=== PATIENT | female | born 1940 | race Caucasian/White ===

== ENCOUNTER → 2016-12-23 | Day surgery (SDC) | payer OTHER ==
[~2016-12-23] VITALS: Ht 162.6 cm; Wt 71.4 kg
[~2016-12-23] MED LIST: ACETAMINOPHEN 500 MG CPLT PO PRN; ATROPINE SULFATE 1% OPHT SOLN 2 ML BTL ONE; BALANCED SALT SOLN OPHT IRRIG 15 ML BTL ONE; BUPIVACAINE HCL PF 0.75% 10 ML VIAL ONE; CHLORHEXIDINE GLUCONATE 2 % 1 PACK (2 CLOTHS) TOPICAL PRN; DEXAMETHASONE SOD PHOS 4 MG/ML VIAL ONE; DO NOT ADM ANY ANTICOAGULANT DRUGS PRN; ENAL20TA PO; EPINEPHrine HCL (1:1000) 1 MG/ML VIAL ONE; INSULIN HUMAN REGULAR 1,000 UNITS/10 ML VIAL SQ PRN; LACTATED RINGER'S 1000 ML IV PRN; METF1000 PO; METOPROLOL TARTRATE 25 MG TAB PO PRN; MIDAZOLAM HCL 2 MG/2 ML VIAL ONE; ONDANSETRON HCL 4 MG/2 ML VIAL IM PRN; ONDANSETRON HCL 4 MG/2 ML VIAL IV PUSH ONE; POVIDONE IODINE 5% (ANTISEPSIS KIT) 4 APPLICATIONS EACH NARE PRN; PRAV40TA2 PO; PROPOFOL 200 MG/20 ML AMP IV ONE; SODIUM CHLORID 0.9% 500 ML IV PRN; STERILE WATER FOR INJ 20 ML VIAL ONE; TOBRAMYCIN SULF 0.3% OPHT SOLN 5 ML BTL ONE; TOBRAMYCIN/DEXAMETHASONE OPTH OINT 3.5 GM TUBE ONE; ceFAZolin INJ 1,000 MG VIAL ONE; fentaNYL CITRATE 250 MCG/5 ML AMP ONE; oxyCODONE/ACETAMINOPHEN 5 MG/325 MG TAB PO PRN
[2016-12-23 06:48] VITALS: BP 154/62; PULSE 93; RESP 16; TEMP 97.8; O2SAT 96
[2016-12-23 07:04] LABS: AUTOMATED NEUTROPHIL # 4.8 TH/MM3 (1.8-7.7); BASOPHIL % 0.6 % (0.0-2.0); EOSINOPHIL # 0.3 TH/MM3 (0-0.4); EOSINOPHIL % 3.9 % (0.0-4.0); HEMO FLAGS DIFF FINAL; LYMPH % 21.1 % (9.0-44.0); LYMPHOCYTE # 1.6 TH/MM3 (1.0-4.8); MEAN CELL VOLUME 81.8 FL (80.0-100.0); MEAN CORPUSCULAR HEMOGLOBIN 27.3 PG (27.0-34.0); MEAN CORPUSCULAR HGB CONC 33.3 % (32.0-36.0); MONO % 10.1 % (0.0-8.0); NEUT % 64.3 % (16.0-70.0); PLATELET COUNT 177 TH/MM3 (150-450); RED BLOOD COUNT 4.65 MIL/MM3 (4.00-5.30); RED CELL DISTRIBUTION WIDTH 14.9 % (11.6-17.2); WHITE BLOOD COUNT 7.5 TH/MM3 (4.0-11.0)
[2016-12-23] MEDS: PHENYLEPHRINE HCL 2.5% OPTH SOLN 2 ML BTL LEFT EYE SCH ×2 (07:40→07:55)
[2016-12-23] MEDS: CYCLOPENTOLATE HCL 1% OPHT SOLN 2 ML BTL LEFT EYE SCH ×2 (07:40→07:55)
[2016-12-23] MEDS: TROPICAMIDE 1% OPHT SOLN 15 ML BTL LEFT EYE SCH ×2 (07:40→07:55)
[2016-12-23] MEDS: ATROPINE SULFATE 1% OPHT SOLN 5 ML BTL LEFT EYE SCH ×2 (07:40→07:55)
[2016-12-23 13:20] VITALS: BP 143/79; PULSE 75; RESP 20; TEMP 97; O2SAT 95
--- NOTE | 2016-12-24 10:45 | EKG ---
Date Performed: 12/23/2016 Time Performed: 06:55:09 PTAGE: 76 years EKG: Sinus rhythm BORDERLINE LEFT AXIS DEVIATION BORDERLINE ECG NO PREVIOUS TRACING DOCTOR: Charlie Sahu Interpretating Date/Time 12/24/2016 10:44:11
--- NOTE | 2016-12-30 14:10 | MP ---
cc: YOKO CHRISTENSEN M.D. DATE OF SURGERY: 12/23/2016 PREOPERATIVE DIAGNOSIS: Rhegmatogenous retinal detachment left eye. POSTOPERATIVE DIAGNOSIS: Rhegmatogenous retinal detachment left eye. OPERATIVE PROCEDURE PERFORMED: Trans pars plana vitrectomy, scleral buckle procedure, gas fluid exchange, laser retinopexy, left eye. SURGEON: Yoko Christensen MD. ANESTHESIA: General laryngeal mask anesthesia. INDICATIONS FOR THE PROCEDURE: Ms. 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 She was unaware of this until the examination. She was sent in and it appeared that the retina was detached from approximately three to nine o'clock. The macula was still attached and there appeared to be a retinal break at about 5 o'clock. The situation was discussed with the patient and it was recommended that she undergo surgery to repair this. She was consented for both a vitrectomy and scleral buckle procedure. Informed consent was obtained. No guarantee was made as to visual recovery. DESCRIPTION OF THE PROCEDURE IN DETAIL: She was brought to [facility] operating room #1 and placed on the operating table. Appropriate anesthesia monitoring devices were applied and she was placed under general anesthesia using a laryngeal mask. The left eye was identified as the operative site and then prepped and draped in the usual sterile fashion. A lid speculum was placed. The microscope was brought around and adjusted. At this time an appropriate time-out was called with the surgical team agreeing to the proposed surgical site and procedure. Initially she had a conjunctival peritomy done at the limbus 360 degrees with relaxing incisions at four and ten o'clock. All four quadrants were opened with blunt dissection using the Celine scissors. The muscles were hooked on muscle hooks and then transferred onto 4-0 black silk ties. Using the fork retractor to inspect the quadrants, all quadrants had good scleral thickness. Next using the indirect ophthalmoscope and scleral marker, the site of the retinal break was marked on the sclera. Diathermy was used to make that hali permanent. Next, 5-0 polyester sutures were placed mattress fashion in each quadrant. A 41 band was threaded underneath the muscles and through the mattress sutures and secured with a 70 sleeve above the lateral rectus muscle. Next using a straight [place] blade, a scleral cutdown was done at the posterior edge of the proposed buckle at about 04:30 to 5 o'clock. It was done radially and as the sclera was incised, diathermy was used to part the scleral wound and allow visualization of the choroid. The choroid was then punctured with a sharp diathermy needle and external drainage of subretinal fluid ensued. Near complete drainage was accomplished. Once that had been done, the buckle was then tightened and secured with the mattress sutures. The 23-gauge vitrectomy system was used with the trocars placed 4 mm posterior to the limbus with the first one being placed at approximately 3:30 o'clock and verified to be in the posterior chamber and then an infusion cannula was affixed to it and turned on. Two additional sclerostomies were done at 10 and 2 o'clock. A complete vitrectomy was carried out. Perfluoron liquid was used to flatten the remaining subretinal fluid after which laser retinopexy was placed on the buckle and around the retinal break at a power of 300 milliwatts by endolaser delivery and a total number of 874 laser spots with a duration of 0.1-second. The Perfluoron was exchanged for air and then the air exchanged for a 25% mixture of SF6 gas. The sclerostomies were closed with 7-0 Vicryl leaving the eye with good pressure and airtight. The orbit was irrigated with a mixture of 0.75% Marcaine without epinephrine and tobramycin solution. The conjunctiva was brought back up into place and closed with interrupted 7-0 chromic. Atropine drops were placed on the cornea followed by subconjunctival injections of Ancef 125 mg in 0.5 cc and Decadron 2 mg in 0.5 cc. The lid speculum was removed and the patient was undraped. TobraDex ointment was placed on the cornea and then the left eye was patched and shielded. The patient had the laryngeal mass removed in the room and was returned to recovery in good condition. She was lying on her right side and when awake and alert, will be asked to assume face down positioning. MD MAC Belle/KIM /12:19 PM /2:07 PM
== END | disposition home or self-care (01) ==
LOC: HSDC 06:14
PROVIDERS: ATTEND Ophthalmology
DX: H33.022 Retinal detachment with multiple breaks, left eye (principal); E11.9 Type 2 diabetes mellitus without complications; I10 Essential (primary) hypertension; Z79.84 Long term (current) use of oral hypoglycemic drugs; Z01.810 Encounter for preprocedural cardiovascular examination; Z01.818 Encounter for other preprocedural examination
CPT/HCPCS: 00145; 67108; 85025; 93005; J0171; J0690; J1100; J2250; J2405; J3010; J7120

== ENCOUNTER 2017-11-10 22:45 | Observation (INO) | payer OTHER ==
[~2017-11-10] VITALS: Ht 162.6 cm; Wt 70.0 kg
[2017-11-10] MEDS: NITROGLYCERIN 0.4 MG SL 25 TABS/BTL SL SCH ×3 (00:15→23:38)
[~2017-11-10 22:45] MED LIST changes: -ACETAMINOPHEN 500 MG CPLT PO PRN; -ATROPINE SULFATE 1% OPHT SOLN 2 ML BTL ONE; -BALANCED SALT SOLN OPHT IRRIG 15 ML BTL ONE; -BUPIVACAINE HCL PF 0.75% 10 ML VIAL ONE; -CHLORHEXIDINE GLUCONATE 2 % 1 PACK (2 CLOTHS) TOPICAL PRN; -DEXAMETHASONE SOD PHOS 4 MG/ML VIAL ONE; -DO NOT ADM ANY ANTICOAGULANT DRUGS PRN; -EPINEPHrine HCL (1:1000) 1 MG/ML VIAL ONE; -INSULIN HUMAN REGULAR 1,000 UNITS/10 ML VIAL SQ PRN; -LACTATED RINGER'S 1000 ML IV PRN; -METOPROLOL TARTRATE 25 MG TAB PO PRN; -MIDAZOLAM HCL 2 MG/2 ML VIAL ONE; -ONDANSETRON HCL 4 MG/2 ML VIAL IM PRN; -ONDANSETRON HCL 4 MG/2 ML VIAL IV PUSH ONE; -POVIDONE IODINE 5% (ANTISEPSIS KIT) 4 APPLICATIONS EACH NARE PRN; -PROPOFOL 200 MG/20 ML AMP IV ONE; -SODIUM CHLORID 0.9% 500 ML IV PRN; -STERILE WATER FOR INJ 20 ML VIAL ONE; -TOBRAMYCIN SULF 0.3% OPHT SOLN 5 ML BTL ONE; -TOBRAMYCIN/DEXAMETHASONE OPTH OINT 3.5 GM TUBE ONE; -ceFAZolin INJ 1,000 MG VIAL ONE; -fentaNYL CITRATE 250 MCG/5 ML AMP ONE; -oxyCODONE/ACETAMINOPHEN 5 MG/325 MG TAB PO PRN
[2017-11-10] MEDS ORDERED: IOHEXOL 350 MG/ML 10 ML VIAL (for RAD DIAG) IVCONTRAST ONE (22:46)
[2017-11-10 23:09] VITALS: BP 200/87; PULSE 94; RESP 18; TEMP 97.6; O2SAT 98
[2017-11-10 23:31] VITALS: BP 174/74; PULSE 85; RESP 16; O2SAT 98
[2017-11-10 23:34] VITALS: RESP 16; O2SAT 98
--- NOTE | 2017-11-10 23:40 | PD ---
HPI Chief Complaint: Chest Pain Time Seen by Provider: 23:33 Travel History International Travel<30 days: No Contact w/Intl Traveler<30days: No Traveled to known affect area: No History of Present Illness HPI 77-year-old female presents to the emergency department complaining of left- sided anterior chest pain 9/10 intensity radiating to the left neck. Pain is worsened by deep respiratory effort. No nausea no vomiting no shortness of breath. Patient denies fever chills states she had a cold yesterday. Nonproductive cough. Patient denies prior history of similar history. Patient does have history of hypertension diabetes and dyslipidemia but denies history of known CAD tobaccoism or family history of premature onset heart disease. No recent long distance travel protracted bedrest or surgical procedure. PFSH Past Medical History Narrative Medical Hypertension dyslipidemia diabetes Cardiovascular Problems: Yes (HTN) High Cholesterol: Yes Diabetes: Yes (Metformin) Patient Takes Glucophage: Yes Hypertension: Yes Tetanus Vaccination: < 5 Years Influenza Vaccination: Yes ?: Not : 2 Para: 2 Past Surgical History Surgical History: No Previous Surgery Social History Alcohol Use: Yes (wine occaisonally) Tobacco Use: No Substance Use: No Allergies-Medications (Allergen,Severity, Reaction): Coded Allergies: No Known Allergies (Unverified , 12/23/16) Reported Meds & Prescriptions Reported Meds & Active Scripts Active Reported Pravastatin 40 Mg Tab 40 Mg PO DAILY Enalapril (Enalapril Maleate) 20 Mg Tab 20 Mg PO DAILY Metformin (Metformin HCl) 1,000 Mg Tab 1,000 Mg PO BIDPC With meals Review of Systems Except as stated in HPI: all other systems reviewed are Neg Physical Exam Narrative GENERAL: Well-developed well-nourished pleasant female no acute distress no respiratory distress SKIN: Warm and dry. HEAD: Normocephalic. EYES: No scleral icterus. No injection or drainage. NECK: Supple, trachea midline. No JVD or lymphadenopathy. CARDIOVASCULAR: Regular rate and rhythm without murmurs, gallops, or rubs. RESPIRATORY: Breath sounds equal bilaterally. No accessory muscle use. GASTROINTESTINAL: Abdomen soft, non-tender, nondistended. MUSCULOSKELETAL: No cyanosis, or edema. Radial dorsalis pedis pulses 2+ to palpation bilaterally BACK: Nontender without obvious deformity. No CVA tenderness. Data Data Last Documented VS Vital Signs Date Time Temp Pulse Resp B/P (MAP) Pulse Ox O2 Delivery O2 Flow Rate FiO2 11/11/17 00:48 82 19 134/60 (84) 100 Room Air 11/10/17 23:09 97.6 Orders Orders Electrocardiogram (11/10/17 ) Electrocardiogram (11/10/17 23:33) Ckmb (Isoenzyme) Profile (11/10/17 23:33) Complete Blood Count With Diff (11/10/17 23:33) Comprehensive Metabolic Panel (11/10/17 23:33) Magnesium (Mg) (11/10/17 23:33) Prothrombin Time / Inr (Pt) (11/10/17 23:33) Act Partial Throm Time (Ptt) (11/10/17 23:33) Troponin I (11/10/17 23:33) Lipase (11/10/17 23:33) Ecg Monitoring (11/10/17 23:33) Bilateral Bp Monitoring (11/10/17 23:33) Iv Access Insert/Monitor (11/10/17 23:33) Oximetry (11/10/17 23:33) Oxygen Administration (11/10/17 23:33) Sodium Chloride 0.9% Flush (Ns Flush) (11/10/17 23:45) Nitroglycerin Sl (Nitrostat Sl) (11/10/17 23:45) Chest, Pa & Lat (11/10/17 23:33) Sodium Chlorid 0.9% 500 Ml Inj (Ns 500 M (11/10/17 23:45) Sodium Chlor 0.9% 1000 Ml Inj (Ns 1000 M (11/10/17 23:45) Ct Pulmonary Angiogram (11/11/17 ) Morphine Inj (Morphine Inj) (11/11/17 01:00) Ondansetron Odt (Zofran Odt) (11/11/17 01:00) Iohexol 350 Inj (Omnipaque 350 Inj) (11/10/17 22:46) Ketorolac Inj (Toradol Inj) (11/11/17 02:45) Labs Laboratory Tests Test 11/10/17 23:43 White Blood Count 8.4 TH/MM3 Red Blood Count 4.74 MIL/MM3 Hemoglobin 13.0 GM/DL Hematocrit 39.0 % Mean Corpuscular Volume 82.2 FL Mean Corpuscular Hemoglobin 27.4 PG Mean Corpuscular Hemoglobin Concent 33.3 % Red Cell Distribution Width 14.4 % Platelet Count 190 TH/MM3 Mean Platelet Volume 9.1 FL Neutrophils (%) (Auto) 62.5 % Lymphocytes (%) (Auto) 22.3 % Monocytes (%) (Auto) 10.5 % Eosinophils (%) (Auto) 4.0 % Basophils (%) (Auto) 0.7 % Neutrophils # (Auto) 5.2 TH/MM3 Lymphocytes # (Auto) 1.9 TH/MM3 Monocytes # (Auto) 0.9 TH/MM3 Eosinophils # (Auto) 0.3 TH/MM3 Basophils # (Auto) 0.1 TH/MM3 CBC Comment DIFF FINAL Differential Comment Prothrombin Time 10.0 SEC Prothromb Time International Ratio 1.0 RATIO Activated Partial Thromboplast Time 27.3 SEC Blood Urea Nitrogen 17 MG/DL Creatinine 0.94 MG/DL Random Glucose 128 MG/DL Total Protein 7.6 GM/DL Albumin 3.9 GM/DL Calcium Level 9.7 MG/DL Magnesium Level 2.2 MG/DL Alkaline Phosphatase 83 U/L Aspartate Amino Transf (AST/SGOT) 33 U/L Alanine Aminotransferase (ALT/SGPT) 44 U/L Total Bilirubin 0.2 MG/DL Sodium Level 141 MEQ/L Potassium Level 4.1 MEQ/L Chloride Level 104 MEQ/L Carbon Dioxide Level 25.5 MEQ/L Anion Gap 12 MEQ/L Estimat Glomerular Filtration Rate 58 ML/MIN Total Creatine Kinase 100 U/L Troponin I LESS THAN 0.02 NG/ML Lipase 158 U/L Exceptions Acute Myocardial Infarction ASA Not Given on Arrival: Already taken by patient MDM Medical Decision Making Medical Screen Exam Complete: Yes Emergency Medical Condition: Yes Medical Record Reviewed: Yes Interpretation(s) Troponin I Last Impressions CT Angiography 11/11/17 0000 Signed Impressions: CONCLUSION: 1. No pulmonary embolus. 2. Multiple enlarged lymph nodes many of which have calcifications seen in the mediastinum and hilar regions presumably from granulomatous exposure. Chest X-Ray 11/10/17 2333 Signed Impressions: CONCLUSION: No acute cardiopulmonary process. CBC & BMP Diagram 11/10/17 23:43 Total Protein 7.6, Albumin 3.9, Calcium Level 9.7, Magnesium Level 2.2, Alkaline Phosphatase 83, Aspartate Amino Transf (AST/SGOT) 33, Alanine Aminotransferase (ALT/SGPT) 44, Total Bilirubin 0.2 Vital Signs Date Time Temp Pulse Resp B/P (MAP) Pulse Ox O2 Delivery O2 Flow Rate FiO2 11/11/17 00:48 82 19 134/60 (84) 100 Room Air 11/11/17 00:14 80 20 166/67 (100) 99 Room Air 11/10/17 23:46 88 14 123/56 (78) 96 Room Air 11/10/17 23:34 16 98 Room Air 11/10/17 23:31 84 16 98 Room Air 11/10/17 23:31 85 16 174/74 (107) 98 Room Air 11/10/17 23:09 97.6 94 18 200/87 (124) 98 Differential Diagnosis Chest pain, atypical chest pain, ACS, NM, pleurisy, costochondritis, pneumonia, PE also consider aneurysm/dissection Narrative Course Patient placed on security monitor with continuous pulse oximetry IV access obtained specimens collected and sent for resulting patient administered nitroglycerin sublingual 2 doses with initial change in pain decreased to 5/10 intensity than recurrent additional dose did not provide any symptom relief Patient given morphine sulfate 2 mg IV Cardiac enzymes are found to be in normal range therefore proceed with CT pulmonary angiogram CT pulmonary angiogram is negative for PE Patient given Toradol 30 mg IV and third sublingual nitroglycerin as well as morphine sulfate 4 mg IV plan will be to admit patient to chest pain center per protocol to rule out cardiac/coronary vessel related etiology for chest pain versus atypical/inflammatory etiology. Patient is agreeable to observation admission. Physician Communication Physician Communication transportation escort protocol Diagnosis Primary Impression: Chest pain Admitting Information Admitting Physician Requests: Observation Mikki Eagle MD Nov 10, 2017 23:40
[2017-11-10] MEDS ORDERED: ASPIRIN 81 MG CHEW TAB PO ONE (23:45)
[2017-11-10] MEDS ORDERED: SODIUM CHLORID 0.9% 500 ML INJ 500 ML IV ONE (23:45)
[2017-11-10] MEDS ORDERED: SODIUM CHLORIDE 0.9% FLUSH 10 ML FLUSH IVF PRN (23:45)
[2017-11-10 23:46] VITALS: BP 123/56; PULSE 88; RESP 14; O2SAT 96
[2017-11-10] MEDS: SODIUM CHLOR 0.9% 1000 ML INJ 1,000 ML IV SCH (23:49)
[2017-11-10 23:53] LABS: AUTOMATED NEUTROPHIL # 5.2 TH/MM3 (1.8-7.7); BASOPHIL # 0.1 TH/MM3 (0-0.2); BASOPHIL % 0.7 % (0.0-2.0); EOSINOPHIL # 0.3 TH/MM3 (0-0.4); LYMPH % 22.3 % (9.0-44.0); LYMPHOCYTE # 1.9 TH/MM3 (1.0-4.8); MEAN CELL VOLUME 82.2 FL (80.0-100.0); MEAN CORPUSCULAR HEMOGLOBIN 27.4 PG (27.0-34.0); MEAN CORPUSCULAR HGB CONC 33.3 % (32.0-36.0); MEAN PLATELET VOLUME 9.1 FL (7.0-11.0); MONO % 10.5 % (0.0-8.0); MONOCYTE # 0.9 TH/MM3 (0-0.9); NEUT % 62.5 % (16.0-70.0); PLATELET COUNT 190 TH/MM3 (150-450); RED BLOOD COUNT 4.74 MIL/MM3 (4.00-5.30); RED CELL DISTRIBUTION WIDTH 14.4 % (11.6-17.2); WHITE BLOOD COUNT 8.4 TH/MM3 (4.0-11.0)
[2017-11-11] VITALS (7 sets, daily range): BP systolic 118–166; BP diastolic 59–67; PULSE 60–84; RESP 16–20; TEMP 97.6–97.8; O2SAT 94–100
[2017-11-11 00:22] LABS: ALBUMIN 3.9 GM/DL (3.4-5.0); ALT (GPT) 44 U/L (10-53); AST (GOT) 33 U/L (15-37); BICARBONATE 25.5 MEQ/L (21.0-32.0); BLOOD UREA NITROGEN 17 MG/DL (7-18); CALCIUM 9.7 MG/DL (8.5-10.1); CHLORIDE 104 MEQ/L (98-107); CREATININE 0.94 MG/DL (0.50-1.00); GLOMERULAR FILTRATION RATE 58 ML/MIN (>89); GLUCOSE,RANDOM 128 MG/DL (74-106); MAGNESIUM 2.2 MG/DL (1.5-2.5); SODIUM (NA) 141 MEQ/L (136-145)
[2017-11-11 00:25] LABS: ALKALINE PHOSPHATASE 83 U/L (45-117); TOTAL BILIRUBIN ADULT 0.2 MG/DL (0.2-1.0); TOTAL PROTEIN 7.6 GM/DL (6.4-8.2); TROPONIN I LESS THAN 0.02 NG/ML (0.02-0.05)
--- NOTE | 2017-11-11 00:33 | RADRPT ---
EXAM DATE: 11/11/2017 12:06 AM EDT AGE/SEX: 77 years / Female INDICATIONS: Left lower chest pain for 24 hours CLINICAL DATA: This is the patient's initial encounter. Patient reports that signs and symptoms have been present for 1 day and indicates a pain score of 6/10. MEDICAL/SURGICAL HISTORY: None. None. COMPARISON: No prior [place] exams available for comparison. FINDINGS: PA and lateral views of the chest demonstrate the lungs to be symmetrically aerated without evidence of mass, infiltrate or effusion. The cardiomediastinal contours are unremarkable. Osseous structures are intact. CONCLUSION: No acute cardiopulmonary process. Electronically signed by: Ugo Wilde MD 11/11/2017 12:32 AM EDT
[2017-11-11] MEDS ORDERED: MORPHINE SULFATE 4 MG/ML INJ IV PUSH ONE ×2 (01:00→03:00)
[2017-11-11] MEDS ORDERED: ONDANSETRON ODT 4 MG TAB PO ONE ×2 (01:00→03:00)
--- NOTE | 2017-11-11 01:47 | RADRPT ---
EXAM DATE: 11/11/2017 1:36 AM EDT AGE/SEX: 77 years / Female INDICATIONS: Chest pain. CLINICAL DATA: This is the patient's initial encounter. Patient reports that signs and symptoms have been present for 1 day and indicates a pain score of 5/10. MEDICAL/SURGICAL HISTORY: Hypertension. Diabetes mellitus type II. . RADIATION DOSE: 9.19 CTDI (mGy) COMPARISON: No prior [place] exams available for comparison. TECHNIQUE: Volumetric scanning was performed using a multi-row detector CT scanner during bolus infu jose manuel of 65 ml Omnipaque 350 (iohexol) nonionic water-soluble contrast as a single exam dose. The víctor a was post processed with a variety of visualization algorithms including full volume maximum intensi ty projection and sliding thin slab reformation. Using automated exposure control and adjustment of the mA and/or kV according to patient size, radiation dose was kept as low as reasonably achievable t o obtain optimal diagnostic quality images. FINDINGS: Pulmonary Arteries: No filling defects are seen in the pulmonary arteries out to the subsegmental ve ssels. The left and right pulmonary arteries are normal in diameter. Lung: No infiltrates seen. Effusion: None. Mediastinum: There are enlarged lymph nodes with calcification seen throughout the mediastinum and h ilar regions. Other: The axilla is unremarkable. There is a mild hiatal hernia. CONCLUSION: 1. No pulmonary embolus. 2. Multiple enlarged lymph nodes many of which have calcifications seen in the mediastinum and hilar regions presumably from granulomatous exposure. Electronically signed by: Ugo Wilde MD 11/11/2017 1:46 AM EDT
[2017-11-11] MEDS ORDERED: KETOROLAC TROMETHAMINE 30 MG/ML (IVP) VIAL IV PUSH ONE ×2 (02:45→08:00)
[2017-11-11] MEDS ORDERED: ONDANSETRON ODT 4 MG TAB PO PRN (03:00)
[2017-11-11] MEDS ORDERED: SODIUM CHLORIDE 0.9% FLUSH 10 ML FLUSH IV FLUSH PRN (03:00)
[2017-11-11] MEDS ORDERED: MORPHINE SULFATE 4 MG/ML INJ IV PUSH PRN (03:00)
[2017-11-11] MEDS ORDERED: ONDANSETRON HCL 4 MG/2 ML VIAL IV PUSH PRN (03:00)
[2017-11-11] MEDS ORDERED: ACETAMINOPHEN/HYDROcodone 325 MG/7.5 MG TAB PO PRN (03:00)
[2017-11-11] MEDS ORDERED: ACETAMINOPHEN 500 MG CPLT PO PRN (03:00)
[2017-11-11] MEDS ORDERED: NITROGLYCERIN 0.4 MG SL 25 TABS/BTL SL PRN (03:00)
[2017-11-11 03:38] LABS: TROPONIN I LESS THAN 0.02 NG/ML (0.02-0.05)
[2017-11-11 06:19] LABS: TROPONIN I LESS THAN 0.02 NG/ML (0.02-0.05)
--- NOTE | 2017-11-11 07:59 | HHI.HP ---
HPI Primary Care Physician Jael Grove M.D. Chief Complaint Chest pain History of Present Illness 77-year-old female with history of hypertension, hyperlipidemia, and type 2 diabetes presents emergency room for further evaluation of left-sided inframammary pain. Onset evening, became worse Monday around 630pm. Characterized as tightness. No radiation. No associated symptoms of nausea, vomiting, shortness of breath, or diaphoresis. Duration constant. Severity Monday evening 02/19, currently chest discomfort 06/21. Couching and taking deep breaths is a precipitating factor. Relieving factors laying flat on her left side, otherwise no particular position or movement makes pain better or worse. Recent cold like symptoms Monday and Monday. Took over the counter Mucinex during those days. Nonproductive cough has improved. No fever or chills. Denies similar pain in the past. Review of Systems General: No fatigue, weakness, fever, chills, or change in appetite. Cold like symptoms of cough and sneezing Monday and Monday. Sneezing resolved and Cough improving. HEENT: No SAUER, no vision changes, no dysphasia, no nasal drainage CV: Continues to have chest discomfort as stated above. RESP: Reports "heating rattling in chest" yesterday. Nonproductive cough. No SOB , hemoptysis, or history of asthma GI: No nausea, vomiting, or bowel changes. : No dysuria, urgency, frequency or history of kidney stones EXT: No lower leg edema, no paraesthesias MS: As stated above. No recent injury, trauma, or change in ROM NEURO: No dizziness, difficulty with balance, LOC, or motor/sensory deficits PSYCH: No anxiety, depression, suicidal ideation SKIN: No rashes, no concerning lesions Past Family Social History Allergies: Coded Allergies: No Known Allergies (Unverified , 12/23/16) Past Medical History Hypertension, hyperlipidemia, type 2 diabetes Past Surgical History Left cataract surgery (10/19/17), left retinal detachment surgery, tubal ligation , left breast biopsy Reported Medications Reported Meds & Active Scripts Active Reported Pravastatin 40 Mg Tab 40 Mg PO DAILY Enalapril (Enalapril Maleate) 20 Mg Tab 20 Mg PO DAILY Metformin (Metformin HCl) 1,000 Mg Tab 1,000 Mg PO BIDPC With meals Vitamin B12 daily Vitamin D daily Probiotic daily Calcium/vitamin D supplement daily Eye drops (names unknown) twice daily Active Ordered Medications Current Medications Medications (Trade) Dose Ordered Sig/Naman Route Start Time Stop Time Status Last Admin Sodium Chloride 1,000 ml @ 100 mls/hr Q10H IV 11/10/17 23:45 11/10/17 23:49 (NS Flush) 2 ml UNSCH PRN IV FLUSH 11/11/17 03:00 (NS Flush) 2 ml BID IV FLUSH 11/11/17 09:00 (Tylenol) 500 mg Q4H PRN PO 11/11/17 03:00 (Harrison 7.5-325 Mg) 1 tab Q4H PRN PO 11/11/17 03:00 (Morphine Inj) 2 mg Q4H PRN IV PUSH 11/11/17 03:00 (Nitrostat Sl) 0.4 mg Q5M PRN SL 11/11/17 03:00 (Aspirin) 325 mg DAILY PO 11/11/17 09:00 (Zofran Odt) 4 mg Q6H PRN PO 11/11/17 03:00 Family History Noncontributory for early onset cardiovascular disease. Social History Known hypertension, hyperlipidemia, and diabetes. No known coronary artery disease. Former smoker quitting 15 years ago. [id number] history. Endorses glass of wine with dinner each evening. . Endorses an active lifestyle. Past cardiac testing Remote exercise stress test 25 years ago. Never required cardiac catheterization. Physical Exam Vital Signs Vital Signs Date Time Temp Pulse Resp B/P (MAP) Pulse Ox O2 Delivery O2 Flow Rate FiO2 11/11/17 04:29 97.8 83 16 124/60 (81) 98 11/11/17 04:16 11/11/17 03:52 76 18 118/59 (78) 97 Room Air 11/11/17 00:48 82 19 134/60 (84) 100 Room Air 11/11/17 00:14 80 20 166/67 (100) 99 Room Air 11/10/17 23:46 88 14 123/56 (78) 96 Room Air 11/10/17 23:34 16 98 Room Air 11/10/17 23:31 84 16 98 Room Air 11/10/17 23:31 85 16 174/74 (107) 98 Room Air 11/10/17 23:09 97.6 94 18 200/87 (124 98 Physical Exam GENERAL: Alert WN, WD, NAD, pleasant, elderly, female HEAD: NC, AT NECK: Supple, no masses, trachea midline CV: RRR, 2/6 systolic murmur, no rub, gallop, or JVD, S1-S2 no S3-S4. No carotid bruits. Left inframammary area pain easily reproduced with palpation. RESP: Faint expiratory wheeze, diminished throughout bilateral, no rhonchi, symmetrical chest rise, nonlabored, able to speak in full sentences ABD: Soft, NT, ND, no masses, positive bowel tones EXT: Pulses +2x4, no dependent edema MS: Normal tone x4 extremities, no obvious deformities, full range of motion NEURO: CN II through CN XII grossly intact, motor strength 5/5 PSYCH: A+O x3, pleasant affect, appropriate speech, mood, insight and judgment SKIN: Normal turgor, normal texture, no lesions, no rashes, brisk cap refill, even hair distribution Laboratory Laboratory Tests Test 11/10/17 23:43 11/11/17 03:00 11/11/17 05:35 White Blood Count 8.4 Red Blood Count 4.74 Hemoglobin 13.0 Hematocrit 39.0 Mean Corpuscular Volume 82.2 Mean Corpuscular Hemoglobin 27.4 Mean Corpuscular Hemoglobin Concent 33.3 Red Cell Distribution Width 14.4 Platelet Count 190 Mean Platelet Volume 9.1 Neutrophils (%) (Auto) 62.5 Lymphocytes (%) (Auto) 22.3 Monocytes (%) (Auto) 10.5 Eosinophils (%) (Auto) 4.0 Basophils (%) (Auto) 0.7 Neutrophils # (Auto) 5.2 Lymphocytes # (Auto) 1.9 Monocytes # (Auto) 0.9 Eosinophils # (Auto) 0.3 Basophils # (Auto) 0.1 CBC Comment DIFF FINAL Differential Comment Prothrombin Time 10.0 Prothromb Time International Ratio 1.0 Activated Partial Thromboplast Time 27.3 Blood Urea Nitrogen 17 Creatinine 0.94 Random Glucose 128 Total Protein 7.6 Albumin 3.9 Calcium Level 9.7 Magnesium Level 2.2 Alkaline Phosphatase 83 Aspartate Amino Transf (AST/SGOT) 33 Alanine Aminotransferase (ALT/SGPT) 44 Total Bilirubin 0.2 Sodium Level 141 Potassium Level 4.1 Chloride Level 104 Carbon Dioxide Level 25.5 Anion Gap 12 Estimat Glomerular Filtration Rate 58 Total Creatine Kinase 100 72 54 Troponin I LESS THAN 0.02 LESS THAN 0.02 LESS THAN 0.02 Lipase 158 Result Diagram: 11/10/17 2343 11/10/17 2343 Imaging Last [address] Angiography 11/11/17 0000 Signed Impressions: CONCLUSION: 1. No pulmonary embolus. 2. Multiple enlarged lymph nodes many of which have calcifications seen in the mediastinum and hilar regions presumably from granulomatous exposure. Chest X-Ray 11/10/17 2333 Signed Impressions: CONCLUSION: No acute cardiopulmonary process. Course EKG Normal sinus rhythm, normal axis, no ST-T segment changes Caprini VTE Risk Assessment Caprini VTE Risk Assessment: Mod/High Risk (score >= 2) Caprini Risk Assessment Model Point Value = 1 Point Value = 2 Point Value = 3 Point Value = 5 Age 41-60 Minor surgery BMI > 25 kg/m2 Swollen legs Varicose veins or History of unexplained or recurrent spontaneous Oral contraceptives or hormone replacement Sepsis (< 1 month) Serious lung disease, including pneumonia (< 1 month) Abnormal pulmonary function Acute myocardial infarction Congestive heart failure (< 1 month) History of inflammatory bowel disease Medical patient at bed rest Age 61-74 Arthroscopic surgery Major open surgery (> 45 min) Laparoscopic surgery (> 45 min) Malignancy Confined to bed (> 72 hours) Immobilizing plaster cast Central venous access Age >= 75 History of VTE Family history of VTE Factor V Leiden Prothrombin [id number] Lupus anticoagulant Anticardiolipin antibodies Elevated serum homocysteine Heparin-induced thrombocytopenia Other congenital or acquired thrombophilia Stroke (< 1 month) Elective arthroplasty Hip, pelvis, or leg fracture Acute spinal cord injury (< 1 month) Prophylaxis Regimen Total Risk Factor Score Risk Level Prophylaxis Regimen 0-1 Low Early ambulation 2 Moderate Order ONE of the following: *Sequential Compression Device (SCD) *Heparin 5000 units SQ BID 3-4 Higher Order ONE of the following medications: *Heparin 5000 units SQ TID *Enoxaparin/Lovenox 40 mg SQ daily (WT < 150 kg, CrCl > 30 mL/min) *Enoxaparin/Lovenox 30 mg SQ daily (WT < 150 kg, CrCl > 10-29 mL/min) *Enoxaparin/Lovenox 30 mg SQ BID (WT < 150 kg, CrCl > 30 mL/min) AND/OR *Sequential Compression Device (SCD) 5 or more Highest Order ONE of the following medications: *Heparin 5000 units SQ TID (Preferred with Epidurals) *Enoxaparin/Lovenox 40 mg SQ daily (WT < 150 kg, CrCl > 30 mL/min) *Enoxaparin/Lovenox 30 mg SQ daily (WT < 150 kg, CrCl > 10-29 mL/min) *Enoxaparin/Lovenox 30 mg SQ BID (WT < 150 kg, CrCl > 30 mL/min) AND *Sequential Compression Device (SCD) Assessment and Plan Assessment and Plan #1 Musculoskeletal chest wall pain-admitted chest pain center. Ruled out 3 sets of EKGs, cardiac enzymes, and monitored on telemetry overnight. Will be seen and evaluated by Dr. Cornell Ramon. Toradol 30 mg IV 1 dose now. Discussed likely will complete exercise stress test later this morning due to multiple risk. Dose of Toradol and albuterol treatment given prior to stress testing. Patient verbalizes understanding and agreeable to plan of care. If cardiac stress testing unremarkable plans will be to discharge home with follow- up with PCP later this afternoon. #2 History of hypertension-continue enalapril #3 History of type II diabetes-hold metformin, hypoglycemia protocol as needed ordered, anticipate early discharge and random glucose 128, no plans to initiate sliding scale insulin coverage at this time #4 History of hyperlipidemia-continue pravastatin Ledy Rodriguez Nov 11, 2017 07:59
[2017-11-11] MEDS ORDERED: RESP: ALBUTEROL 2.5 MG/3 ML NEB (PRN) NEB (08:00)
[2017-11-11] MEDS ORDERED: GLUCAGON 1 MG/ML VIAL OTHER PRN (08:30)
[2017-11-11] MEDS ORDERED: DEXTROSE 50% IN WATER 50 ML VIAL(D50) IV PUSH PRN (08:30)
[2017-11-11] MEDS ORDERED: SODIUM CHLORIDE 0.9% FLUSH 10 ML FLUSH IV FLUSH SCH (09:00)
[2017-11-11] MEDS ORDERED: ASPIRIN 325 MG TAB PO SCH (09:00)
[2017-11-11] MEDS ORDERED: PRAVASTATIN SOD 40 MG TAB PO SCH (09:00)
[2017-11-11] MEDS ORDERED: ENALAPRIL MALEATE 10 MG TAB PO SCH (09:00)
[2017-11-11] MEDS: SODIUM CHLOR 0.9% 1000 ML INJ 1,000 ML IV SCH (09:45)
--- NOTE | 2017-11-11 11:21 | EKG ---
Date Performed: 11/11/2017 Time Performed: 02:56:43 PTAGE: 77 years EKG: Sinus rhythm NORMAL ECG PREVIOUS TRACING : 11/10/2017 23.24 Since previous tracing, no significant change noted DOCTOR: Cornell Ramon Interpretating Date/Time 11/11/2017 11:19:45
--- NOTE | 2017-11-11 11:26 | EKG ---
Date Performed: 11/10/2017 Time Performed: 23:24:46 PTAGE: 77 years EKG: Sinus rhythm NORMAL ECG PREVIOUS TRACING : 12/23/2016 06.55 Since previous tracing, no significant change noted DOCTOR: Cornell Ramon Interpretating Date/Time 11/11/2017 11:26:07
--- NOTE | 2017-11-11 11:28 | EKG ---
Date Performed: 11/11/2017 Time Performed: 05:03:43 PTAGE: 77 years EKG: Sinus rhythm borderline Left axis deviation PREVIOUS TRACING : 11/11/2017 02.56 Since previous tracing, no significant change noted DOCTOR: Cornell Ramon Interpretating Date/Time 11/11/2017 11:27:43
--- NOTE | 2017-11-11 11:42 | HHI.DCPOC ---
Discharge Care Plan Diagnosis: (1) Musculoskeletal chest pain Goals to Promote Your Health * To prevent worsening of your condition and complications * To maintain your health at the optimal level Directions to Meet Your Goals Take your medications as prescribed Follow your dietary instruction Follow activity as directed Keep your appointments as scheduled Take your immunizations and boosters as scheduled If your symptoms worsen call your PCP, if no PCP go to Urgent Care Center or Emergency Room Smoking is Dangerous to Your Health. Avoid second hand smoke Call the 24-hour hour crisis hotline for domestic abuse at [facility] Nov 11, 2017 11:42
--- NOTE | 2017-11-14 12:52 | TR ---
Date Performed: 11/11/2017 Time Performed: 11:19:07 DOCTOR: Nina Hendrix DRUG LIST: CLINICAL HISTORY: CHEST PAIN REASON FOR TEST: Chest pain REASON FOR ENDING: OBSERVATION: CONCLUSION: Matias protocol completed. Stopped sec to exceeding target heart rate and leg fatigue . Maximum GX=417, 85% of target heart rate 123. Maximum HR=668/88 Total Exercise Time=6:01. No reprod chest discomfort. No ectopy. No st t segment changes to sugg ischemia. Normal bp response. Good exer cise tolerance. Recovery quick and unremarkable. COMMENTS: No ischemia on the averaged tracings that are available
== END 2017-11-11 14:53 | disposition home or self-care (01) ==
LOC: NEPC 22:45 → NEDA 11-11 02:51 → NEPGCP 11-11 04:07
DX: R07.89 Other chest pain (principal); R05 Cough; R59.0 Localized enlarged lymph nodes; I10 Essential (primary) hypertension; E78.5 Hyperlipidemia, unspecified; E11.9 Type 2 diabetes mellitus without complications; R01.1 Cardiac murmur, unspecified; Z79.899 Other long term (current) drug therapy; Z79.84 Long term (current) use of oral hypoglycemic drugs; Z87.891 Personal history of nicotine dependence
CPT/HCPCS: 71046; 71275; 80053; 82550; 83690; 83735; 84484; 85025; 85610; 85730; 93005; 93017; 94664; 96361; 96374; 96375; 99285; G0378; J1885; J2270; J7030; J7040; J7613; Q9967